=== PATIENT | female | born 1995 | race African-American/Black ===

== ENCOUNTER 2021-11-08 07:10 | Emergency (ER) | payer MEDICAID ==
[~2021-11-08] VITALS: Ht 160 cm; Wt 83.9 kg
[2021-11-08 08:00] VITALS: BP 142/85
[2021-11-08] MEDS ORDERED: IBUP800T27 PO (08:09)
[2021-11-08] MEDS ORDERED: DICL500C76 PO (08:09)
== END 2021-11-08 08:22 | disposition home or self-care (01) ==
LOC: ER 07:10
DX: L73.9 Follicular disorder, unspecified (principal); F17.210 Nicotine dependence, cigarettes, uncomplicated; Z79.1 Long term (current) use of non-steroidal anti-inflammatories (NSAID); Z79.2 Long term (current) use of antibiotics